=== PATIENT | male | born 1950 | race Caucasian/White ===

== ENCOUNTER 2025-08-25 11:19 | Emergency (ER) | payer MEDICARE, OTHER, SELFPAY ==
[2025-08-25 11:25] VITALS: BP 137/53
--- NOTE | 2025-08-25 14:07 | ED.GENMED ---
History of Present Illness
General
Chief Complaint: Musculo-Skeletal Complaint
Time Seen by Provider: 08/25/25 12:11
History of Present Illness
History of Present Illness:
74-year-old male presents to the emergency department for evaluation of a right foot and ankle injury sustained after falling off the last rung of the ladder. He is able to bear weight with significant pain. Denies any distal paresthesias.
Review of Systems
Review of Systems
Allergies reviewed?: Yes
All Other Systems: ROS reviewed and negative except as documented in HPI and ROS
Phy Exam
Physical Exam
Physical Exam:
GEN: Well appearing, NAD, WDWN
HEENT: Oral mucosa moist, no scleral icterus
Cardiac: Regular rate
Lung: No respiratory distress, no tachypnea
MSK: Diffuse swelling to the lateral malleolus with exquisite tenderness. Mild tenderness to the proximal fibula, no tenderness to the base of the fifth metatarsal, range of motion normal of the right ankle in all cosme
Skin: Good color, no pallor or jaundice, no rashes
Neuro: AO x3, moves all extremities freely
Psych: Calm, cooperative
Course
Orders/Labs/Results
Orders:
Orders
08/25/25 11:30
CR Ankle - Right Min 3 Views * Urgent
Comment:
Reason For Exam: pain/fall
08/25/25 12:32
Ortho Boot Right- Treatment ONCE
Short or tall?: Tall
CR Knee- Right 4 Or More View* Urgent
Comment:
Reason For Exam: RLE injury
Vital Signs
Initial and Last Documented VS:
Initial Vital Signs
Pulse Resp BP Pulse Ox
58 20 137/53 97
08/25/25 11:25 08/25/25 11:25 08/25/25 11:25 08/25/25 11:25
Last Documented Vital Signs
Pulse Resp BP Pulse Ox
58 20 137/53 97
08/25/25 11:25 08/25/25 11:25 08/25/25 11:25 08/25/25 14:08
MDM/Problems Addressed
MDM/Problems Addressed:
Patient identified to have a minimally displaced distal fibula fracture with a nondisplaced proximal fibula fracture. Placed in a long orthopedic boot, weightbearing as tolerated status, outpatient orthopedic follow-up
*Pulse Oximetry
SaO2: 97
Oxygen Mode of Delivery: Room air
Patient hypoxic: no
*Critical Care Note
Total Time (30-74mins, 75-104mins- exclusive of procedures): Not Applicable
ED Attending Note
-
Portions of this chart may have been created with voice recognition software.� Occasional wrong word or��sound alike� substitutions may have occurred due to the inherent limitations of voice recognition software.
Discharge Plan
Departure
Patient Disposition: Home (Routine Discharge)
Date of Disposition: 08/25/25
Time of Disposition: 14:07
Patient with high blood pressure during this ER visit?: No
Discharge Problem:
Closed fracture of distal end of right fibula, Closed fracture of proximal end of right fibula
Instructions: Lower leg fracture
Referrals:
Ernesto Branham MD [Active, Orthopedics]
Activity Restrictions/Additional Instructions:
Use the boot at all times when walking, you may remove intermittently to elevate the leg and ice the ankle. Remove for showering purposes however do not attempt to bear weight on the right leg without using the boot. Follow-up with orthopedics
soon as possible for further discussion of plan
Interventions
Interventions:
*Risk Screen - Suicide Last Done: 08/25/25 11:25
*General Assessment Last Done: 08/25/25 11:25
*Neglect/Abuse Screening Last Done: 08/25/25 11:25
*ED- Fall Risk Assessment Last Done: 08/25/25 12:20
*Nursing Disposition Last Done: 08/25/25 14:32
ED-Musculoskeletal Assessment Last Done: 08/25/25 12:20
Discharge Date and Time
Discharge Date/Time: 08/25/25 14:32
Print Language: IRISH
== END 2025-08-25 14:32 | disposition home or self-care (01) ==
LOC: EMR 11:19
PROVIDERS: EMERGENCY PHYSICIAN Emergency Medicine; FAMILY PHYSICIAN Family Medicine
DX: S82.831A Other fracture of upper and lower end of right fibula, initial encounter for closed fracture (principal); W11.XXXA Fall on and from ladder, initial encounter
CPT/HCPCS: 99283; 73564; 73610